=== PATIENT | male | born 1955 | race Two or more races ===

== ENCOUNTER 2018-03-07 16:46 | Emergency (ER) | payer SELFPAY ==
[~2018-03-07] VITALS: Ht 170.2 cm; Wt 98.0 kg
[2018-03-07] MEDS ORDERED: FLUORESCEIN SODIUM 1MG/STRIP RIGHTEYE ONE (17:45)
[2018-03-07] MEDS ORDERED: TETRACAINE 0.5% OPHTH DROPS 4ML RIGHTEYE ONE (17:45)
[2018-03-07 18:56] VITALS: BP 138/74
== END 2018-03-08 | disposition home or self-care (01) ==
LOC: ER 16:46
DX: H54.61 Unqualified visual loss, right eye, normal vision left eye (principal); I10 Essential (primary) hypertension
CPT/HCPCS: 99284

== ENCOUNTER 2021-07-17 09:31 | Emergency (ER) | payer OTHER ==
[~2021-07-17] VITALS: Ht 172.7 cm; Wt 120.0 kg
[2021-07-17] MEDS ORDERED: IBUPROFEN 600MG TABLET PO ONE (10:30)
[2021-07-17 10:49] VITALS: BP 137/89
[2021-07-17] MEDS ORDERED: IBUP-2029 MT (11:04)
== END 2021-07-17 11:13 | disposition home or self-care (01) ==
LOC: ER 09:34
DX: M25.532 Pain in left wrist (principal); I10 Essential (primary) hypertension
CPT/HCPCS: 73110; 99283

== ENCOUNTER 2021-12-20 21:55 | Emergency (ER) | payer OTHER ==
[~2021-12-20] VITALS: Ht 177.8 cm; Wt 127.0 kg
[~2021-12-20 21:55] MED LIST: IBUP-2029 MT
[2021-12-21] MEDS ORDERED: IBUPROFEN 600MG TABLET PO STA (01:01)
[2021-12-21] MEDS ORDERED: IBUP-2029 PO (01:11)
[2021-12-21] MEDS ORDERED: PENICILLIN G BENZATHINE 1,200,000 UNITS/2ML SYR IM ONE (01:15)
[2021-12-21 01:34] VITALS: BP 112/78
== END 2021-12-21 01:30 | disposition home or self-care (01) ==
LOC: ER 21:55
DX: J02.9 Acute pharyngitis, unspecified (principal); I10 Essential (primary) hypertension
CPT/HCPCS: 96372; 99283; J0561; Z7610

== ENCOUNTER 2023-05-29 13:46 | Emergency (ER) | payer MEDICARE, MEDICAID ==
[~2023-05-29] VITALS: Ht 172.7 cm; Wt 113.4 kg
[~2023-05-29 13:46] MED LIST changes: +IBUP-2029 PO
[2023-05-29 13:56] VITALS: O2SAT 100
[2023-05-29] MEDS: KETOROLAC 30MG/ML VIAL IM ONE (17:00)
[2023-05-29] MEDS ORDERED: ACET325T52 MT (17:35)
[2023-05-29] MEDS ORDERED: DICL100G58 TP (17:35)
[2023-05-29 17:46] VITALS: BP 145/90; PULSE 60; RESP 18; TEMP 98.2
== END 2023-05-29 17:57 | disposition home or self-care (01) ==
LOC: ER 14:24
DX: M17.12 Unilateral primary osteoarthritis, left knee (principal); I10 Essential (primary) hypertension; Z90.49 Acquired absence of other specified parts of digestive tract; Z96.653 Presence of artificial knee joint, bilateral
CPT/HCPCS: 99283; 73560; 96372; J1885